=== PATIENT | female | born 1960 | race Caucasian/White ===

== ENCOUNTER → 2018-01-17 | Outpatient (CLI) | payer OTHER ==
[~2018-01-17] VITALS: Ht 182.9 cm; Wt 79.6 kg
[~2018-01-17] MED LIST: BUTA1CAP PO; CHLORHEXIDINE GLUCONATE 2 % 1 PACK (2 CLOTHS) TOPICAL PRN; CLON.5 PO; DO NOT ADM ANY ANTICOAGULANT DRUGS PRN; GABA300C5 PO; IMIT100T PO; INSULIN HUMAN REGULAR 1,000 UNITS/10 ML VIAL SQ PRN; LACTATED RINGER'S 1000 ML IV PRN; LISD30 PO; METOPROLOL TARTRATE 25 MG TAB PO PRN; PEPP90CA PO; POVIDONE IODINE 5% (ANTISEPSIS KIT) 4 APPLICATIONS EACH NARE PRN; PRIS100T PO; PROPOFOL 200 MG/20 ML AMP IV ONE; SODIUM CHLORID 0.9% 500 ML IV PRN; WELLTAB39 PO
--- NOTE | 2018-01-17 12:10 | MR ---
cc: Fabio Santos MD 01/17/2018 PROCEDURE: EGD with biopsy, colonoscopy with biopsy and polypectomy. INDICATION FOR PROCEDURE: 1. History of gastroesophageal reflux disease, abdominal bloating and gas. 2. Family history of colorectal polyps, screening colonoscopy, increased risk. Photographs were taken. PREMEDICATIONS: Administered by anesthesiology. MONITORING: Constant pulse oximetry, EKG, blood pressure monitor. PROCEDURE NOTE: After informed consent was obtained and the procedure, risks and benefits were explained including the risk of bleeding, sepsis, perforation, and risks of anesthesia, the patient was placed in the left lateral position. The video endoscope was inserted in the esophagus under direct visualization. The esophagus appeared to be normal with a normal Z-line. Two biopsies of the esophageal mucosa were taken for evaluation of microscopic disease. The stomach was entered. The gastric mucosa was normal throughout. In the retroflexed view the cardia and fundus were unremarkable. The scope was passed through the pyloric ring into the first, second and third portion of the duodenum. The duodenal mucosa was unremarkable, biopsies were taken to rule out celiac sprue. The scope was then gradually withdrawn and the patient was repositioned for colonoscopy. The colonoscope was inserted in the rectum, passed in the cecum in the usual fashion. The colonic prep was excellent. There was one 5 mm sessile polyp noted along the ileocecal valve. This was successfully snared with the polypectomy snare without cautery. Just below this another tiny diminutive lesion was found. This was biopsied off and removed. The scope was gradually withdrawn. The rest of the colonic mucosa appeared to be normal throughout. Colon ____ time was greater than 6 minutes. In the rectum the scope was retroflexed. No internal hemorrhoids were noted. Externally at the anus there was noted to be large anal tags and skin folds, but there was no evidence of any active bleeding noted. These were left intact. The patient tolerated the procedure well. She was returned to the recovery room in stable condition. IMPRESSION: 1. Normal esophagus and stomach. 2. Normal duodenum, biopsied for evaluation of celiac sprue. Esophageal biopsies were also taken randomly. 3. Colonoscopy evaluation revealed ileocecal valve polyp that was successfully snared off by cold polypectomy technique. A small lesion at the ileocecal valve was biopsied. The rest of the colon was unremarkable. The patient did not have any significant internal hemorrhoids, she had large anal tags noted as above. PLAN: Would continue PPI therapy, followup biopsies taken today. Recommend repeat colonoscopy in 5 years for surveillance. Would recommend local therapy to the anal tags. If these are bothersome we could refer her to the colorectal surgeon as well, but for now I would proceed conservatively. Will discuss with the patient. MD SEUN Abebe/CLAUDIA/ , 11:16 AM , 11:45 AM
[2018-01-17 12:34] VITALS: BP 129/77; PULSE 60; RESP 20; TEMP 97.7; O2SAT 100
--- NOTE | 2018-01-17 13:43 | EKG ---
Date Performed: 01/17/2018 Time Performed: 08:45:27 PTAGE: 57 years EKG: SINUS BRADYCARDIA BORDERLINE ECG NO PREVIOUS TRACING DOCTOR: Dez Dunn Interpretating Date/Time 01/17/2018 13:40:32
== END ==
LOC: HSDC 07:57
PROVIDERS: ATTEND Internal Medicine Gastroenterology
DX: Z12.11 Encounter for screening for malignant neoplasm of colon (principal); K21.9 Gastro-esophageal reflux disease without esophagitis; R14.0 Abdominal distension (gaseous); Z83.71 Family history of colonic polyps; D12.0 Benign neoplasm of cecum; K64.4 Residual hemorrhoidal skin tags; R00.1 Bradycardia, unspecified
CPT/HCPCS: 43239; 45380; 45385; 88305; 93005; J7120